=== PATIENT | female | born 1995 | race Caucasian/White ===

== ENCOUNTER 2016-05-18 18:10 | Emergency (ER) | payer OTHER ==
[~2016-05-18] VITALS: Ht 167.6 cm; Wt 92.8 kg
[2016-05-18 18:17] VITALS: TEMP 36.6; Ht 167.6 cm; Wt 92.8 kg
[2016-05-18] MEDS ORDERED: SODIUM CHLORIDE 0.9% 1000ML 1,000 ML IV STA (18:41)
[2016-05-18] MEDS ORDERED: KETOROLAC TROMETHAMINE 30 MG/ML VIAL IV STA (18:41)
[2016-05-18] MEDS ORDERED: DEXAMETHASONE SOD INJ 4 MG/ML VIAL IV STA (18:41)
[2016-05-18] MEDS ORDERED: DiphenhydrAMINE HCL 50 MG/ML VIAL IV STA (18:41)
[2016-05-18] MEDS ORDERED: BCPILLS PO (18:41)
[2016-05-18] MEDS ORDERED: OPTIRAY 320 IV PRN (18:45)
[2016-05-18 19:15] LABS: BASO % 0.3 %; BASO ABS # 0.02 K/uL (0-0.2); COMPLETE YES; EOS % 0.7 %; HEMATOCRIT 36.4 % (37-47); IG% 0.2 %; LYMPH % 24.5 %; LYMPH ABS # 1.45 K/uL (1.2-3.4); MEAN CELL VOLUME 86.7 fL (80-100); MEAN CORPUSCULAR HEMOGLOBIN 29.5 pg (25-34); MEAN CORPUSCULAR HGB CONC 34.1 g/dl (32-36); MEAN PLATELET VOLUME 10.8 fL (7.4-10.4); MONO % 9.6 %; NEUT % 64.7 %; PLATELET COUNT 181 K/uL (130-400); WHITE BLOOD COUNT 5.93 K/uL (4.8-10.8)
[2016-05-18 19:32] LABS: BUN/CREATININE RATIO 19.5 (10-20); CALCIUM 8.9 mg/dl (8.5-10.1); CREATININE 0.86 mg/dl (0.60-1.20); POTASSIUM 3.8 mmol/L (3.5-5.1)
[2016-05-18 19:43] LABS: PREG INTERNAL NEGATIVE QC NEG CLEAR BACKGROUND; PREG INTERNAL POSITIVE QC POS CONTROL LINE
[2016-05-18 20:19] LABS: URINE APPEARANCE CLEAR (CLEAR); URINE BILIRUBIN NEG (NEG); URINE COLOR YELLOW; URINE EPITHELIAL CELL AUTO 20-30 /lpf (0-5); URINE NITRITE NEG (NEG); URINE PH 5.5 (4.5-7.5); URINE SPECIFIC GRAVITY 1.024 (1.000-1.030); UROBILINOGEN NEG (NEG)
[2016-05-18 20:21] LABS: MANUAL MICROSCOPIC REQUIRED? NO; REVIEW REQ? NO
--- NOTE | 2016-05-18 20:23 | DIAGNOSTIC IMAGING REPORT ---
HEAD CT WITH AND WITHOUT INTRAVENOUS CONTRAST HISTORY: Left-sided head pulsations. EVALUATE FOR MASS TECHNIQUE: Multiaxial CT images of the head were performed both before and after the intravenous administration of contrast. COMPARISON STUDY: None. FINDINGS: Paranasal sinuses and mastoid air cells are clear. The calvarium and skull base are intact. The ventricles and sulci are within normal limits. There is no mass, hematoma, midline shift, acute infarct. No abnormal enhancement. IMPRESSION: Normal head CT. Electronically signed by: Guille Zuniga M.D. 05/18/2016 8:20 PM Dictated Date/Time: 05/18/2016 8:17 PM
[2016-05-18 21:12] VITALS: BP 114/69; PULSE 74; O2SAT 98
--- NOTE | 2016-05-19 02:54 | EMERGENCY ROOM VISIT NOTE ---
ED Visit Note First contact with patient: 18:24 Chief Complaint: Bad headache. History of Present Illness: Ms. Nathan is a 20-year-old white female who ambulates into the ED complaining of a left frontal headache. Patient denies any previous significant injuries or history of headaches. Patient reports she woke up this morning normally and then when she started walking to class she developed a mild headache. Since that time she reports she 's had a continuous mild achy headache. She rates this discomfort 5/10. Her pain is nonradiating. She has not identified any aggravating or alleviating factors related to the pain. She has not taken any medication for pain prior to arrival at the hospital. Associated with her pain she reports intermittently she has been having a sharp stabbing pain just superior to the left eyes. She describes this transient pain that comes and goes without provocation. She rates this discomfort 7/10. She has not taken any medication for this. Associated when she has this stabbing pain she reports that she develops a transient episode of mild blurry vision that resolves with her pain resolution and she feels that when she's been walking throughout the day she feels like her coordination is slightly off; she was not able to give me a example. She denies any associated/recent trauma, dizziness, lightheadedness, hearing changes, difficulty speaking, difficulty swallowing, difficulty coordinating body movements, neck pain/stiffness, upper respiratory tract symptoms, chest pain, shortness of breath, abdominal pain, nausea, vomiting. Review of Systems: As noted above in history of present illness. All body systems were reviewed and found to be negative as noted above. Past Medical History: Patient denies. Current Medications: control. Allergies to Medications: Patient denies. 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 Physical Examination: Vital Signs: Date Time Temp Pulse Resp B/P Pulse Ox O2 Delivery O2 Flow Rate FiO2 05/18/16 21:12 74 18 114/69 98 Room Air 05/18/16 19:29 68 18 117/95 100 Room Air 05/18/16 18:17 36.6 73 18 142/81 99 Room Air GENERAL: 20-year-old female in mild distress due to pain, nontoxic-appearing, afebrile and hemodynamically stable. NEUROLOGICAL: Awake, alert and oriented to person, place and time. Answering questions appropriately and following commands. Normal gait. Good hand eye coordination. No focal motor or sensory deficits. Romberg test negative. Pronator drift test negative. Cranial nerves II through XII grossly intact. Good short-term and long-term recall. Normal rapid alternate movements of the hands and feet. Able to spell in count backwards by 7. SKIN: Warm, dry and pink. No soft tissue eruptions or trauma noted. HEENT: Atraumatic and normocephalic. PERRLA. EOMI without nystagmus. Sclera white and conjunctiva pink. No malocclusion. No intraoral trauma. Airway is patent. Speech normal. No lymphadenopathy. Trachea midline. No jugular venous distention. BACK: No tenderness over the bony cervical and thoracic spine. Full range of motion of the cervical spine. No CVA tenderness. THORAX: Lungs sounds are clear to auscultation and equal bilaterally with symmetrical chest wall. No wheezing, rales or rhonchi. No crepitus, tenderness , subcutaneous air or deformities noted. HEART: Regular rate and rhythm. No gallops, rubs or murmurs are appreciated. ABDOMEN: Flat, soft and nontender. Positive bowel sounds in all quadrants. No guarding, rigidity or organomegaly. EXTREMITIES: Moves all extremities well on command and with purpose. All distal neurovascular statuses are intact and equal bilaterally. ED Course: Patient is assessed as noted above. Laboratory Testing: Test 05/18/16 19:00 Range/Units White Blood Count 5.93 4.8-10.8 K/uL Red Blood Count 4.20 4.2-5.4 M/uL Hemoglobin 12.4 12.0-16.0 g/dL Hematocrit 36.4 37-47 % Mean Corpuscular Volume 86.7 80-100 fL Mean Corpuscular Hemoglobin 29.5 25-34 pg Mean Corpuscular Hemoglobin Concent 34.1 32-36 g/dl Platelet Count 181 130-400 K/uL Mean Platelet Volume 10.8 7.4-10.4 fL Neutrophils (%) (Auto) 64.7 % Lymphocytes (%) (Auto) 24.5 % Monocytes (%) (Auto) 9.6 % Eosinophils (%) (Auto) 0.7 % Basophils (%) (Auto) 0.3 % Neutrophils # (Auto) 3.84 1.4-6.5 K/uL Lymphocytes # (Auto) 1.45 1.2-3.4 K/uL Monocytes # (Auto) 0.57 0.11-0.59 K/uL Eosinophils # (Auto) 0.04 0-0.5 K/uL Basophils # (Auto) 0.02 0-0.2 K/uL RDW Standard Deviation 42.0 36.4-46.3 fL RDW Coefficient of Variation 13.2 11.5-14.5 % Immature Granulocyte % (Auto) 0.2 % Immature Granulocyte # (Auto) 0.01 0.00-0.02 K/uL Erythrocyte Sedimentation Rate 14 0-21 mm/hr Urine Color YELLOW Urine Appearance CLEAR CLEAR Urine pH 5.5 4.5-7.5 Urine Specific [place] 1.024 1.000-1.030 Urine Protein NEG NEG Urine Glucose (UA) NEG NEG Urine Ketones NEG NEG Urine Occult Blood 1+ NEG Urine Nitrite NEG NEG Urine Bilirubin NEG NEG Urine Urobilinogen NEG NEG Urine Leukocyte Esterase SMALL NEG Urine WBC (Auto) 1-5 0-5 /hpf Urine RBC (Auto) 0-4 0-4 /hpf Urine Hyaline Casts (Auto) 1-5 0-5 /lpf Urine Epithelial Cells (Auto) 20-30 0-5 /lpf Urine Bacteria (Auto) NEG NEG Sodium Level 138 136-145 mmol/L Potassium Level 3.8 3.5-5.1 mmol/L Chloride Level 105 98-107 mmol/L Carbon Dioxide Level 24 21-32 mmol/L Anion Gap 9.0 3-11 mmol/L Blood Urea Nitrogen 17 7-18 mg/dl Creatinine 0.86 0.60-1.20 mg/dl Est Creatinine Clear Calc Drug Dose 119.7 ml/min Estimated GFR () 112.7 Estimated GFR (Non- 97.3 BUN/Creatinine Ratio 19.5 10-20 Random Glucose 83 70-99 mg/dl Calcium Level 8.9 8.5-10.1 mg/dl Human Chorionic Gonadotropin, Qual NEG NEG Head CT: Was reviewed by myself and the radiologist showing no acute intracranial abnormalities or skull fractures. Patient was hydrated with normal saline, she received 30 mg of Toradol IV for pain, 10 mg of Decadron IV for inflammation, 25 mg of Benadryl IV. Patient was reassessed multiple times during her stay in the emergency department. Patient's case was reviewed with Dr. Chiang; we agreed on diagnostic approach, treatment, disposition and plan. Patient was educated about tonight's findings and instructed on her treatment plan; she verbalizes understanding and agreement with this plan. Clinical Impression: Right frontal head pain. Decision-Making: Initially my differential diagnosis I considered subarachnoid bleed, intracranial pressure, primary headaches, early shingles and other causes. Disposition: Patient discharged home in stable condition accompanied by her boyfriend; prior to departure she was reassessed and subjectively reported she was feeling much better. She reported near resolution of her base headache and that her sharp discomfort was rated 2/10. Plan: Patient was encouraged to alternate ibuprofen and acetaminophen as needed for pain. Patient was encouraged to stay well-hydrated. Patient was encouraged to avoid alcohol use. Patient was encouraged to follow-up at [facility] for recheck if no better in 3-5 days for recheck and possible referral to neurology. Patient was encouraged return the ED for worsening/uncontrolled pain, worsening visual changes, worsening coordination changes, fevers, vomiting or any new/ concerning symptoms.
== END 2016-05-18 21:19 | disposition home or self-care (01) ==
LOC: C.EDB 18:12 → C.EDC 21:19
DX: R51 Headache (principal)

== ENCOUNTER → 2016-11-04 | Outpatient (CLI) | payer OTHER ==
[~2016-11-04] MED LIST: BCPILLS PO
[2016-11-04 12:12] LABS: HEMATOCRIT 38.2 % (37-47); MEAN CELL VOLUME 89.5 fL (80-100); MEAN CORPUSCULAR HEMOGLOBIN 29.5 pg (25-34); MEAN PLATELET VOLUME 11.3 fL (7.4-10.4); PLATELET COUNT 207 K/uL (130-400); RED BLOOD COUNT 4.27 M/uL (4.2-5.4); WHITE BLOOD COUNT 4.79 K/uL (4.8-10.8)
[2016-11-04 12:14] LABS: PREG INTERNAL NEGATIVE QC NEG CLEAR BACKGROUND; PREG INTERNAL POSITIVE QC POS CONTROL LINE
== END | disposition home or self-care (01) ==
LOC: C.LAB1850 10:51
PROVIDERS: ATTEND Physician Assistant
DX: R63.5 Abnormal weight gain (principal); N93.9 Abnormal uterine and vaginal bleeding, unspecified